=== PATIENT | female | born 2000 | race African-American/Black ===

== ENCOUNTER 2019-01-16 01:07 | Observation (INO) | payer MEDICAID ==
[~2019-01-16] VITALS: Ht 165.1 cm; Wt 83.9 kg
[~2019-01-16 01:07] MED LIST: ALBU17AE26
[2019-01-16] MEDS: LACTATED RINGERS 1,000 ML IV SCH ×2 (01:28→04:23)
[2019-01-16 03:15] LABS: CLARITY URINE CLEAR (CLEAR); COLOR URINE YELLOW (YELLOW); KETONES URINE NEGATIVE (NEGATIVE); LEUKOCYTE ESTERASE URINE NEGATIVE (NEGATIVE); NITRITE URINE NEGATIVE (NEGATIVE); OCCULT BLOOD URINE NEGATIVE (NEGATIVE); PROTEIN URINE NEGATIVE (NEGATIVE); SPECIFIC GRAVITY URINE 1.012 (1.005-1.030)
[2019-01-16 03:28] LABS: *BARBITURATES SCREEN URINE NEGATIVE (NEGATIVE); *BENZODIAZEPINES SCREEN URINE NEGATIVE (NEGATIVE); *COCAINE SCREEN URINE NEGATIVE (NEGATIVE); METHADONE URINE SCREEN NEGATIVE (NEGATIVE)
[2019-01-16 03:29] LABS: CANNABINOID URINE SCREEN NEGATIVE (NEGATIVE); OPIATES URINE SCREEN NEGATIVE (NEGATIVE); PHENCYCLIDINE URINE SCREEN NEGATIVE (NEGATIVE)
[2019-01-16 03:38] LABS: *AMPHETAMINES SCREEN URINE PRESUMTIVE POSITIVE (NEGATIVE)
[2019-01-16] MEDS: TERBUTALINE SULFATE 1MG/ML VIAL SUBCUT SCH ×2 (04:14→04:51)
== END 2019-01-16 06:37 | disposition left against medical advice (07) ==
LOC: 8 EST LDRP 01:07
PROVIDERS: ADMIT Obstetrics & Gynecology; ATTEND Obstetrics & Gynecology
DX: O62.9 Abnormality of forces of labor, unspecified (principal); O99.513 Diseases of the respiratory system complicating pregnancy, third trimester; J45.909 Unspecified asthma, uncomplicated; Z3A.36 36 weeks gestation of pregnancy
CPT/HCPCS: 76805; 76818; 80305; 80307; 81003; 96372; 99281; G0378; J3105

== ENCOUNTER 2019-01-17 17:09 | Observation (INO) | payer MEDICAID ==
[~2019-01-17] VITALS: Ht 167.6 cm; Wt 90.7 kg
[2019-01-17] MEDS: LACTATED RINGERS 1,000 ML IV SCH (17:57)
[2019-01-17] MEDS ORDERED: DEXT 5%/LR + PITOCIN 20UNITS/L 1,000 ML IV SCH (17:57)
[2019-01-17] MEDS ORDERED: LIDOCAINE HCL 1% 20ML VIAL (Pyxis) INJ INFIL SCH (18:00)
[2019-01-17] MEDS ORDERED: NALOXONE HCL 0.4 MG/ML 1ML VIAL IM PRN (18:00)
[2019-01-17] MEDS ORDERED: CARBOPROST TROMETHAMINE 250 MCG/ML AMPUL IM PRN (18:00)
[2019-01-17] MEDS ORDERED: METHYLERGONOVINE MALEATE 0.2 MG/ML IM PRN (18:00)
[2019-01-17] MEDS ORDERED: BUTORPHANOL TARTRATE 2 MG/ML VIAL IV PRN (18:00)
[2019-01-17] MEDS ORDERED: AMPICILLIN 2,000 MG in SODIUM CHLORIDE 0.9% 100 ML IV SCH (19:00)
[2019-01-17 19:32] LABS: BASOPHILS % 0.6 % (0.0-2.0); EOSINOPHILS % 1.5 % (0.0-5.0); HEMATOCRIT. 28.7 % (36.0-48.0); HEMOGLOBIN. 9.1 g/dL (12.0-16.0); INR 0.9; LYMPHOCYTES % 22.6 % (20.0-50.0); MEAN CORPUSCULAR HEMOGLOBIN 22.4 pg (28.0-32.0); MEAN CORPUSCULAR VOLUME 70.5 fL (81.0-99.0); MEAN PLATELET VOLUME 9.3 fl (7.4-10.4); MONOCYTES % 10.6 % (2.0-8.0); NEUTROPHILS % 64.7 % (40.0-76.0); PARTIAL THROMBOPLASTIN TIME 26.8 sec (23.4-31.0); PLATELET 208 x1000/uL (130-400); PROTHROMBIN TIME 9.5 sec (9.6-11.0); RED BLOOD CELL COUNT 4.07 mill/uL (4.2-5.4)
[2019-01-17] MEDS: BETAMETHASONE ACET/BETAMET 30 MG/5 ML VIAL IM SCH (19:55)
[2019-01-17 19:56] LABS: HEPATITIS B SURFACE ANTIGEN NEGATIVE
[2019-01-17] MEDS: AZITHROMYCIN 500 MG in DEXT 5% WATER 250 ML IV SCH (20:37)
[2019-01-17] MEDS ORDERED: MAGNESIUM 4 G PREMIX 100 ML IV NR (21:15)
[2019-01-17 21:48] LABS: CLARITY URINE CLEAR (CLEAR); COLOR URINE DARK YELLOW (YELLOW); KETONES URINE 1+ (NEGATIVE); LEUKOCYTE ESTERASE URINE TRACE (NEGATIVE); NITRITE URINE NEGATIVE (NEGATIVE); OCCULT BLOOD URINE NEGATIVE (NEGATIVE); PROTEIN URINE TRACE (NEGATIVE); SPECIFIC GRAVITY URINE 1.029 (1.005-1.030)
[2019-01-17 22:25] LABS: *BARBITURATES SCREEN URINE NEGATIVE (NEGATIVE); *BENZODIAZEPINES SCREEN URINE NEGATIVE (NEGATIVE); *COCAINE SCREEN URINE NEGATIVE (NEGATIVE); METHADONE URINE SCREEN NEGATIVE (NEGATIVE); OPIATES URINE SCREEN NEGATIVE (NEGATIVE)
[2019-01-17 22:26] LABS: CANNABINOID URINE SCREEN NEGATIVE (NEGATIVE); PHENCYCLIDINE URINE SCREEN NEGATIVE (NEGATIVE)
[2019-01-17 23:08] LABS: *AMPHETAMINES SCREEN URINE PRESUMTIVE POSITIVE (NEGATIVE)
[2019-01-18] MEDS: AMPICILLIN 1,000 MG in SODIUM CHLORIDE 0.9% 50 ML IV SCH ×5 (03:14→22:52)
[2019-01-18] MEDS: LACTATED RINGERS 1,000 ML IV SCH ×2 (03:37→17:42)
[2019-01-18] MEDS: MAGNESIUM 20 G PREMIX (L & D) 500 ML IV SCH ×3 (04:01→23:21)
[2019-01-18] MEDS: BETAMETHASONE ACET/BETAMET 30 MG/5 ML VIAL IM SCH (19:14)
[2019-01-18] MEDS: AZITHROMYCIN 500 MG in DEXT 5% WATER 250 ML IV SCH (20:18)
[2019-01-18] MEDS ORDERED: ONDANSETRON HCL 4MG/2ML INJ IV PRN (20:45)
[2019-01-18] MEDS ORDERED: ACETAMINOPHEN 325MG TABLET PO PRN (22:15)
[2019-01-18 23:21] VITALS: BP 109/57
[2019-01-19] MEDS ORDERED: LACTATED RINGERS 1,000 ML IV SCH (03:15)
[2019-01-19] MEDS: AMPICILLIN 1,000 MG in SODIUM CHLORIDE 0.9% 50 ML IV SCH ×2 (05:04→11:10)
[2019-01-19] MEDS ORDERED: BUTORPHANOL TARTRATE 2 MG/ML VIAL IV PRN (07:15)
[2019-01-19] MEDS ORDERED: CARBOPROST TROMETHAMINE 250 MCG/ML AMPUL IM PRN (07:15)
[2019-01-19] MEDS ORDERED: NALOXONE HCL 0.4 MG/ML 1ML VIAL IM PRN (07:15)
[2019-01-19] MEDS ORDERED: METHYLERGONOVINE MALEATE 0.2 MG/ML IM PRN (07:15)
== END 2019-01-19 16:15 | disposition home or self-care (01) ==
LOC: 8 EST LDRP 17:09 → 8 EST A/PP 01-19 10:05
PROVIDERS: ADMIT Obstetrics & Gynecology; ATTEND Obstetrics & Gynecology
DX: O62.9 Abnormality of forces of labor, unspecified (principal); Z3A.36 36 weeks gestation of pregnancy
CPT/HCPCS: 36415; 76815; 76818; 80305; 80307; 81003; 83735; 85025; 85610; 85730; 86592; 86703; 86762; 86850; 86900; 86901; 87340; 96365; 96366; 96367; 96368; 96372; 96375; 99281; G0378; J0290; J0456; J0702; J2405; J3475; J7050; J7060; J7120

== ENCOUNTER 2020-05-13 11:47 | Emergency (ER) | payer MEDICAID ==
[~2020-05-13] VITALS: Ht 170.2 cm; Wt 103.0 kg
[2020-05-13] MEDS ORDERED: IBUPROFEN 600MG TABLET PO ONE (12:30)
[2020-05-13] MEDS ORDERED: METHOCARBAMOL 500MG TABLET PO ONE (14:45)
[2020-05-13] MEDS ORDERED: IBUPROFEN 400MG TABLET PO ONE (18:30)
[2020-05-13] MEDS ORDERED: METHOCARBAMOL 750MG TABLET PO SCH (22:00)
[2020-05-14 09:08] VITALS: BP 103/59
== END 2020-05-14 09:09 | disposition home or self-care (01) ==
LOC: ER 12:30
DX: S16.1XXA Strain of muscle, fascia and tendon at neck level, initial encounter (principal); J45.909 Unspecified asthma, uncomplicated; Y04.0XXA Assault by unarmed brawl or fight, initial encounter; Y93.89 Activity, other specified; Y92.89 Other specified places as the place of occurrence of the external cause
CPT/HCPCS: 72170; 99283

== ENCOUNTER 2020-08-03 21:58 | Emergency (ER) | payer MEDICAID ==
[~2020-08-03] VITALS: Ht 172.7 cm; Wt 95.0 kg
[2020-08-03 22:12] VITALS: BP 182/110
[2020-08-03] MEDS ORDERED: KETOROLAC 60MG/2ML VIAL IM STA (22:47)
[2020-08-03] MEDS ORDERED: ACETAMINOPHEN WITH CODEINE 300/30MG TABLET PO ONE (23:00)
[2020-08-03] MEDS ORDERED: AMOXICILLIN/POTASSIUM CLAVULANATE 875/125MG TAB PO ONE (23:15)
[2020-08-03] MEDS ORDERED: IBUP-2029 PO (23:27)
[2020-08-03] MEDS ORDERED: AMOX-424 PO (23:27)
[2020-08-03] MEDS ORDERED: HYDR-4346 PO (23:27)
== END 2020-08-03 23:35 | disposition home or self-care (01) ==
LOC: ER 21:58
DX: K02.9 Dental caries, unspecified (principal); K04.7 Periapical abscess without sinus
CPT/HCPCS: 96372; 99283; J1885

== ENCOUNTER 2021-03-31 22:55 | Emergency (ER) | payer MEDICAID ==
[~2021-03-31] VITALS: Ht 165.1 cm; Wt 113.0 kg
[~2021-03-31 22:55] MED LIST changes: +AMOX-424 PO; +HYDR-4346 PO; +IBUP-2029 PO
[2021-03-31] MEDS ORDERED: ACETAMINOPHEN 325MG TABLET PO ONE (23:30)
[2021-04-01] MEDS ORDERED: CHLO473M2 MT (00:56)
[2021-04-01] MEDS ORDERED: ACET-2708 MT (00:56)
[2021-04-01 01:25] VITALS: BP 132/88
== END 2021-04-01 01:20 | disposition home or self-care (01) ==
LOC: ER 23:36
DX: K08.89 Other specified disorders of teeth and supporting structures (principal); J45.909 Unspecified asthma, uncomplicated
CPT/HCPCS: 81025; 99283

== ENCOUNTER 2021-09-19 01:17 | Emergency (ER) | payer MEDICAID ==
[~2021-09-19] VITALS: Ht 165.1 cm; Wt 117.0 kg
[~2021-09-19 01:17] MED LIST changes: +ACET-2708 MT; +CHLO473M2 MT
[2021-09-19 01:23] VITALS: BP 142/86
[2021-09-19] MEDS ORDERED: BO1 TP (01:53)
== END 2021-09-19 02:00 ==
LOC: ER 01:17
DX: S40.811A Abrasion of right upper arm, initial encounter (principal); X58.XXXA Exposure to other specified factors, initial encounter; Y93.89 Activity, other specified; Y92.89 Other specified places as the place of occurrence of the external cause; Y99.8 Other external cause status
CPT/HCPCS: 99283

== ENCOUNTER 2022-05-26 01:01 | Emergency (ER) | payer MEDICAID, OTHER ==
[~2022-05-26] VITALS: Ht 162.6 cm; Wt 120.0 kg
[~2022-05-26 01:01] MED LIST changes: +BO1 TP
[2022-05-26 01:09] VITALS: BP 138/83
[2022-05-26] MEDS ORDERED: ALBUTEROL (0.083%) 2.5MG/3ML NEB HHN STA (01:58)
[2022-05-26] MEDS ORDERED: IPRATROPIUM BROMIDE (0.02%) 0.5MG/2.5ML NEB HHN STA (01:58)
[2022-05-26] MEDS ORDERED: ACETAMINOPHEN 325MG TABLET PO STA (03:16)
[2022-05-26] MEDS ORDERED: METHYLPREDNISOLONE SOD SUCC 125 MG/2 ML VIAL IM STA (04:16)
[2022-05-26] MEDS ORDERED: NAPR-681 PO (04:23)
[2022-05-26] MEDS ORDERED: D-ME473S50 PO (04:23)
[2022-05-26] MEDS ORDERED: P50 MT (04:23)
[2022-05-26] MEDS ORDERED: ALBU18HF2 IH (04:23)
== END 2022-05-26 04:20 | disposition home or self-care (01) ==
LOC: ER 01:01
DX: J45.901 Unspecified asthma with (acute) exacerbation (principal); Z20.822 Contact with and (suspected) exposure to COVID-19
CPT/HCPCS: 71045; 81025; 87070; 87426; 87430; 94640; 96372; 99284; J2930; Z7610; 94002